=== PATIENT | male | born 1965 | race Caucasian/White ===

== ENCOUNTER → 2017-07-08 | Outpatient (CLI) | payer OTHER | LOC: BMCIMAGING 14:25 | PROVIDERS: ATTEND Registered Nurse General Practice | DX: S62.617A Displaced fracture of proximal phalanx of left little finger, initial encounter for closed fracture (principal) ==

== ENCOUNTER → 2017-08-30 | Outpatient (CLI) | payer OTHER | LOC: BMCIMAGING 13:51 | PROVIDERS: ATTEND Orthopaedic Surgery Hand Surgery | DX: S62.607D Fracture of unspecified phalanx of left little finger, subsequent encounter for fracture with routine healing (principal) ==